=== PATIENT | female | born 1955 | race African-American/Black ===

== ENCOUNTER 2016-11-07 08:35 | Emergency (ER) | payer MEDICARE, MEDICAID ==
[~2016-11-07] VITALS: Ht 167.6 cm; Wt 100.0 kg
[~2016-11-07 08:35] MED LIST: HCTZ; HYDROCHLOROTHIAZIDE; LISINOPRIL; [UNRECOGNIZED DRUG - CODE] TP
[2016-11-07 12:19] LABS: BASOPHILS % 0.5 % (0.0-2.0); EOSINOPHILS % 2.5 % (0.0-5.0); HEMATOCRIT. 37.3 % (36.0-48.0); HEMOGLOBIN. 12.7 g/dL (12.0-16.0); LYMPHOCYTES % 19.1 % (20.0-50.0); MEAN CORPUSCULAR HEMOGLOBIN 28.9 pg (28.0-32.0); MEAN CORPUSCULAR HGB CONC 34.1 g/dL (31.0-37.0); MEAN CORPUSCULAR VOLUME 84.8 fL (81.0-99.0); MEAN PLATELET VOLUME 9.8 fl (7.4-10.4); MONOCYTES % 9.1 % (2.0-8.0); NEUTROPHILS % 68.8 % (40.0-76.0); PLATELET 155 x1000/uL (130-400); RED CELL DISTRIBUTION WIDTH 14.1 % (11.6-14.6); WHITE BLOOD COUNT 5.4 x1000/uL (4.5-11.0)
[2016-11-07 12:25] LABS: CHLORIDE 95 mEq/L (98-107)
[2016-11-07 12:27] LABS: INDEX HEMOLYSI 1 (1-3); INDEX ICTERIC 1 (1-4); INDEX LIPEMIC 1 (1-3)
[2016-11-07 12:30] LABS: ALBUMIN 2.9 g/dL (3.4-5.0); ANION GAP 14; CARBON DIOXIDE 33 mEq/L (21-32); UREA NITROGEN BLOOD 14 mg/dL (7-21)
[2016-11-07 12:32] LABS: ALANINE AMINOTRANSFERASE 33 IU/L (13-61); eGFR > 60 mL/min (>60)
[2016-11-07 12:36] LABS: NT PRO B-TYPE NATRIURETIC PEP 23 pg/mL (5-125); TROPONIN I < 0.02 ng/mL (0.00-0.04)
[2016-11-07 14:25] LABS: CLARITY URINE CLOUDY (CLEAR); COLOR URINE YELLOW (YELLOW); GLUCOSE URINE NEGATIVE (NEGATIVE); KETONES URINE 1+ (NEGATIVE); LEUKOCYTE ESTERASE URINE TRACE (NEGATIVE); NITRITE URINE NEGATIVE (NEGATIVE); OCCULT BLOOD URINE NEGATIVE (NEGATIVE); PH URINE 5.5 (4.5-8.0); PROTEIN URINE NEGATIVE (NEGATIVE); SPECIFIC GRAVITY URINE 1.017 (1.005-1.030)
[2016-11-07] MEDS ORDERED: POTASSIUM CHLORIDE INJ 40 MEQ in SODIUM CHLORIDE 0.9% 500 ML IV SCH (14:30)
[2016-11-07 14:50] LABS: BACTERIA URINE 2+; RBC URINE 0-2 /hpf (0-2); SQUAMOUS EPITHELIAL CELL URINE 1+ /lpf (RARE/1+); WBC URINE 0-2 /hpf (0-2)
[2016-11-07 14:51] LABS: YEAST URINE 1+
[2016-11-07] MEDS ORDERED: IPRATROPIUM/ALBUTEROL 0.5-3(2.5)MG/3ML NEB HHN ONE ×2 (15:00→15:15)
[2016-11-07 18:37] VITALS: BP 89/66
== END 2016-11-07 19:20 | disposition home or self-care (01) ==
LOC: ER 10:52
DX: J45.909 Unspecified asthma, uncomplicated (principal); E87.6 Hypokalemia; I10 Essential (primary) hypertension; R11.2 Nausea with vomiting, unspecified; Z90.710 Acquired absence of both cervix and uterus
CPT/HCPCS: 36415; 71020; 80053; 81001; 83880; 84484; 85025; 87040; 87086; 93005; 94640; 96365; 99285; J3480; J7030; J7040; J7620

== ENCOUNTER 2018-12-21 04:47 | Emergency (ER) | payer MEDICARE, MEDICAID ==
[~2018-12-21] VITALS: Ht 167.6 cm; Wt 108.0 kg
[2018-12-21] MEDS ORDERED: PREDNISONE 20MG TABLET PO ONE (06:45)
[2018-12-21] MEDS ORDERED: FAMOTIDINE 20MG TABLET PO ONE (06:45)
[2018-12-21] MEDS ORDERED: DIPHENHYDRAMINE 25MG CAPSULE PO ONE (06:45)
[2018-12-21 07:11] LABS: BASOPHILS % 0.2 % (0.0-2.0); EOSINOPHILS % 1.8 % (0.0-5.0); HEMATOCRIT. 40.9 % (36.0-48.0); HEMOGLOBIN. 13.8 g/dL (12.0-16.0); LYMPHOCYTES % 23.6 % (20.0-50.0); MEAN CORPUSCULAR HEMOGLOBIN 28.3 pg (28.0-32.0); MEAN CORPUSCULAR VOLUME 84.1 fL (81.0-99.0); MEAN PLATELET VOLUME 9.6 fl (7.4-10.4); MONOCYTES % 6.7 % (2.0-8.0); NEUTROPHILS % 67.7 % (40.0-76.0); PLATELET 190 x1000/uL (130-400); RED BLOOD CELL COUNT 4.86 mill/uL (4.2-5.4); RED CELL DISTRIBUTION WIDTH 13.4 % (11.6-14.6)
[2018-12-21 07:13] LABS: INR 1.1; PROTHROMBIN TIME 11.2 sec (9.6-11.0)
[2018-12-21 07:14] LABS: CHLORIDE 105 mEq/L (98-107)
[2018-12-21] MEDS ORDERED: AZITHROMYCIN 500 MG TABLET PO ONE (07:15)
[2018-12-21] MEDS ORDERED: CEFTRIAXONE SODIUM 250 MG/VIAL IM ONE (07:15)
[2018-12-21 07:43] VITALS: BP 117/90
== END 2018-12-21 07:44 | disposition home or self-care (01) ==
LOC: ER 04:47
DX: L29.9 Pruritus, unspecified (principal); I10 Essential (primary) hypertension; Z88.5 Allergy status to narcotic agent
CPT/HCPCS: 36415; 80053; 85025; 85610; 99284; J7512; Q0163

== ENCOUNTER 2019-05-27 23:25 | Inpatient (IN) | payer MEDICARE, MEDICAID ==
[~2019-05-27] VITALS: Ht 167.6 cm; Wt 103.4 kg
[2019-05-28] MEDS ORDERED: KETOROLAC 30MG/ML VIAL IV ONE (01:30)
[2019-05-28 01:50] LABS: BASOPHILS % 0.6 % (0.0-2.0); EOSINOPHILS % 1.6 % (0.0-5.0); HEMATOCRIT. 43.5 % (36.0-48.0); HEMOGLOBIN. 14.7 g/dL (12.0-16.0); LYMPHOCYTES % 29.8 % (20.0-50.0); MEAN CORPUSCULAR HEMOGLOBIN 28.4 pg (28.0-32.0); MEAN CORPUSCULAR VOLUME 84.4 fL (81.0-99.0); MEAN PLATELET VOLUME 9.3 fl (7.4-10.4); MONOCYTES % 5.4 % (2.0-8.0); NEUTROPHILS % 62.6 % (40.0-76.0); PLATELET 188 x1000/uL (130-400); RED BLOOD CELL COUNT 5.16 mill/uL (4.2-5.4); RED CELL DISTRIBUTION WIDTH 15.2 % (11.6-14.6)
[2019-05-28 01:59] LABS: CHLORIDE 104 mEq/L (98-107)
[2019-05-28 02:10] LABS: INR 1.1
[2019-05-28] MEDS ORDERED: TRAMADOL 50MG TABLET PO ONE (03:45)
[2019-05-28] MEDS ORDERED: MAGNESIUM/ALUMINUM HYDROXIDE/SIMETHICONE 30ML UDC PO PRN (07:30)
[2019-05-28] MEDS ORDERED: NA PHOS,M-B/NA PHOS,DI-BA ENEMA 118ML PR PRN (07:30)
[2019-05-28] MEDS ORDERED: HYDROCODONE/ACETAMINOPHEN 10/325MG TABLET PO PRN (07:30)
[2019-05-28] MEDS ORDERED: DIPHENHYDRAMINE 50MG/ML VIAL IV PRN (07:30)
[2019-05-28] MEDS ORDERED: LORAZEPAM 2MG/ML CPJ IV PRN (07:30)
[2019-05-28] MEDS ORDERED: HYDRALAZINE 20MG/ML VIAL IV PRN (07:30)
[2019-05-28] MEDS ORDERED: GUAIFENESIN 200MG/10ML SUGAR FREE UDC PO PRN (07:30)
[2019-05-28] MEDS ORDERED: ACETAMINOPHEN 325MG TABLET PO PRN (07:30)
[2019-05-28] MEDS ORDERED: IPRATROPIUM/ALBUTEROL 0.5-3(2.5)MG/3ML NEB HHN PRN (07:30)
[2019-05-28] MEDS ORDERED: CLONIDINE 0.1MG TABLET PO PRN (07:30)
[2019-05-28] MEDS ORDERED: DOCUSATE SODIUM 100MG CAPSULE PO PRN (07:30)
[2019-05-28] MEDS ORDERED: ONDANSETRON HCL 4MG/2ML INJ IV PRN (07:30)
[2019-05-28 08:00] VITALS: BP 140/103
[2019-05-28 08:10] VITALS: BP 150/106
[2019-05-28] MEDS ORDERED: HYDRALAZINE 10 MG in SODIUM CHLORIDE 0.9% 50 ML IV PRN (08:30)
[2019-05-28] MEDS: ENOXAPARIN 30MG/0.3ML SYR SUBCUT SCH ×2 (09:24→21:00)
[2019-05-28] MEDS: DEXT 5%/0.45% NACL 1000ML 1,000 ML IV SCH ×3 (09:25→21:00)
[2019-05-28] MEDS ORDERED: KCL 20MEQ/100ML PREMIX 100 ML IV NR (10:00)
[2019-05-28] MEDS ORDERED: TRAM50TA3 MT (11:30)
[2019-05-28] MEDS ORDERED: CARV3.1242 MT (11:30)
[2019-05-28] MEDS ORDERED: OMEP-265 MT (11:30)
[2019-05-28 12:00] VITALS: BP 103/78
[2019-05-28] MEDS: SODIUM CHLORIDE 0.9% INJ 3ML FLUSH IVF SCH ×2 (14:14→21:10)
[2019-05-28 16:00] VITALS: BP 137/83
[2019-05-28] MEDS ORDERED: TRAMADOL 50MG TABLET PO PRN (16:30)
[2019-05-28] MEDS ORDERED: POTASSIUM CHLORIDE 20MEQ TABLET SR PO NR (17:00)
[2019-05-28 20:00] VITALS: BP 109/75
[2019-05-29] MEDS: DEXT 5%/0.45% NACL 1000ML 1,000 ML IV SCH ×2 (03:53→09:36)
[2019-05-29 04:00] VITALS: BP 110/65
[2019-05-29] MEDS: SODIUM CHLORIDE 0.9% INJ 3ML FLUSH IVF SCH (06:13)
[2019-05-29 06:42] LABS: BASOPHILS % 0.6 % (0.0-2.0); EOSINOPHILS % 2.2 % (0.0-5.0); HEMATOCRIT. 37.3 % (36.0-48.0); HEMOGLOBIN. 12.5 g/dL (12.0-16.0); MEAN CORPUSCULAR HEMOGLOBIN 28.4 pg (28.0-32.0); MEAN CORPUSCULAR VOLUME 84.8 fL (81.0-99.0); MEAN PLATELET VOLUME 9.6 fl (7.4-10.4); MONOCYTES % 6.2 % (2.0-8.0); PLATELET 142 x1000/uL (130-400); RED CELL DISTRIBUTION WIDTH 15.3 % (11.6-14.6)
[2019-05-29 07:49] LABS: CHLORIDE 109 mEq/L (98-107)
[2019-05-29 08:00] VITALS: BP 106/68
[2019-05-29] MEDS: ENOXAPARIN 30MG/0.3ML SYR SUBCUT SCH (08:32)
[2019-05-29] MEDS ORDERED: POTASSIUM CHLORIDE 20MEQ TABLET SR PO NR (10:00)
[2019-05-29 12:00] VITALS: BP 104/71
[2019-05-29 13:59] VITALS: BP 104/71
== END 2019-05-29 14:15 | disposition home or self-care (01) | DRG 446 ==
LOC: ER 23:56 → EDBEDREQTM 05-28 07:05 → EDBEDREQ 05-28 07:05 → ENRESERV 05-28 07:29 → 6EST 05-28 08:06
PROVIDERS: ADMIT Internal Medicine; ATTEND Internal Medicine
DX: K80.70 Calculus of gallbladder and bile duct without cholecystitis without obstruction (principal); E87.6 Hypokalemia; I10 Essential (primary) hypertension; W18.30XA Fall on same level, unspecified, initial encounter; Z88.5 Allergy status to narcotic agent; Z79.899 Other long term (current) drug therapy; Z68.36 Body mass index [BMI] 36.0-36.9, adult
CPT/HCPCS: 36415; 76700; 78227; 96374; 99285; A9537; J1200; J1650; J1885; J3480

== ENCOUNTER 2019-06-07 06:54 | Day surgery (SDC) | payer MEDICARE, MEDICAID ==
[~2019-06-07] VITALS: Ht 167.6 cm; Wt 103.4 kg
[~2019-06-07 06:54] MED LIST changes: +CARV3.1242 MT; -HCTZ; -HYDROCHLOROTHIAZIDE; +LACTATED RINGERS 1,000 ML IV SCH; -LISINOPRIL; +LISINOPRIL PO; +OMEP-265 MT; +TRAM50TA3 MT; -[UNRECOGNIZED DRUG - CODE] TP
[2019-06-07] MEDS ORDERED: INDOCYANINE GREEN 25 MG VIAL IV ONE (11:33)
[2019-06-07] MEDS ORDERED: BUPIVACAINE HCL 0.5% (5MG/ML) 50ML ONE (11:34)
[2019-06-07] MEDS ORDERED: SKIN ADHESIVE 0.7 GM EA TOP ONE (11:34)
[2019-06-07] MEDS ORDERED: PROPOFOL 200MG/20ML VIAL IV ONE (11:52)
[2019-06-07] MEDS ORDERED: ROCURONIUM BROMIDE 10MG/ML VIAL 5ML IV ONE (11:52)
[2019-06-07] MEDS ORDERED: FENTANYL CITRATE/PF 50MCG/ML 2ML VIAL ONE (11:52)
[2019-06-07] MEDS ORDERED: LIDOCAINE HCL/PF 1% 10 MG/ML 5ML VIAL ONE (11:53)
[2019-06-07] MEDS ORDERED: MIDAZOLAM HCL 2 MG/2 ML VIAL ONE (11:53)
[2019-06-07] MEDS ORDERED: SUCCINYLCHOLINE CHLORIDE 200MG/10ML IV ONE (11:53)
[2019-06-07] MEDS ORDERED: EPHEDRINE SULFATE 50MG/ML VIAL ONE (11:58)
[2019-06-07] MEDS ORDERED: SODIUM CHLORIDE 0.9% 10ML VIAL ONE (11:58)
[2019-06-07 13:18] LABS: CLARITY URINE CLOUDY (CLEAR); COLOR URINE YELLOW (YELLOW); KETONES URINE NEGATIVE (NEGATIVE); LEUKOCYTE ESTERASE URINE TRACE (NEGATIVE); NITRITE URINE NEGATIVE (NEGATIVE); OCCULT BLOOD URINE NEGATIVE (NEGATIVE); PH URINE 5.5 (4.5-8.0); PROTEIN URINE NEGATIVE (NEGATIVE); SPECIFIC GRAVITY URINE 1.016 (1.005-1.030)
[2019-06-07] MEDS ORDERED: ONDANSETRON HCL 4MG/2ML INJ ONE (13:28)
[2019-06-07] MEDS ORDERED: LISI-186 PO (14:15)
[2019-06-07] MEDS: HYDROMORPHONE HCL/PF 2MG/ML CPJ IV PRN ×4 (14:16→14:51)
[2019-06-07] MEDS ORDERED: TRAMADOL 50MG TABLET PO NR (15:30)
[2019-06-07] MEDS ORDERED: NITROGLYCERIN 0.4MG TABLET SL SL PRN (15:30)
[2019-06-07 16:06] VITALS: BP 99/64
[2019-06-07] MEDS ORDERED: DIPHENHYDRAMINE 50MG/ML VIAL IV NR (16:30)
== END 2019-06-07 18:30 | disposition home or self-care (01) ==
LOC: OR 06:54
PROVIDERS: ATTEND Surgery
DX: K80.10 Calculus of gallbladder with chronic cholecystitis without obstruction (principal); I10 Essential (primary) hypertension; E66.01 Morbid (severe) obesity due to excess calories; E78.00 Pure hypercholesterolemia, unspecified; Z79.899 Other long term (current) drug therapy; Z88.5 Allergy status to narcotic agent; Z88.6 Allergy status to analgesic agent; Z88.8 Allergy status to other drugs, medicaments and biological substances; Z83.3 Family history of diabetes mellitus; Z82.49 Family history of ischemic heart disease and other diseases of the circulatory system; Z98.890 Other specified postprocedural states; Z68.36 Body mass index [BMI] 36.0-36.9, adult
CPT/HCPCS: 47562; 81003; 88304; J0330; J1170; J1200; J2250; J2405; J2704; J3010; J3490; Q9957

== ENCOUNTER 2019-06-07 22:32 | Emergency (ER) | payer MEDICARE, MEDICAID ==
[~2019-06-07] VITALS: Ht 167.6 cm; Wt 103.0 kg
[~2019-06-07 22:32] MED LIST changes: -LACTATED RINGERS 1,000 ML IV SCH; +LISI-186 PO
[2019-06-08] MEDS ORDERED: KETOROLAC 30MG/ML VIAL IM ONE (01:00)
[2019-06-08] MEDS ORDERED: TRAMADOL 50MG TABLET PO ONE (01:45)
[2019-06-08 01:56] LABS: CLARITY URINE CLEAR (CLEAR); COLOR URINE YELLOW (YELLOW); KETONES URINE NEGATIVE (NEGATIVE); LEUKOCYTE ESTERASE URINE NEGATIVE (NEGATIVE); NITRITE URINE NEGATIVE (NEGATIVE); OCCULT BLOOD URINE NEGATIVE (NEGATIVE); PROTEIN URINE NEGATIVE (NEGATIVE); SPECIFIC GRAVITY URINE 1.011 (1.005-1.030)
[2019-06-08 03:23] VITALS: BP 138/99
== END 2019-06-08 03:42 | disposition home or self-care (01) ==
LOC: ER 22:32
DX: R33.9 Retention of urine, unspecified (principal); I10 Essential (primary) hypertension
CPT/HCPCS: 51702; 81003; 99284; A4315

== ENCOUNTER → 2020-03-19 | Outpatient (CLI) | payer MEDICARE, MEDICAID ==
[~2020-03-19] MED LIST changes: +AMLO5TAB88 PO; +ASPI-1497 PO; +DEXAMETHASONE 4MG/ML 1ML VIAL ONE; +FENTANYL CITRATE/PF 50MCG/ML 2ML VIAL ONE; +GLYCOPYRROLATE 0.2 MG/ML 2ML VIAL ONE; -LISINOPRIL PO; +METO25TA6 PO; +MIDAZOLAM HCL 2 MG/2 ML VIAL ONE; +NAPR220T66 PO; +NEOSTIGMINE METHYLSULFATE 1MG/ML 10 ML VIAL ONE; +ONDANSETRON HCL 4MG/2ML INJ ONE; +PRIM50TA31 PO; +PROPOFOL 200MG/20ML VIAL IV ONE; +RANI150C12 PO; +ROCURONIUM BROMIDE 10MG/ML VIAL 5ML IV ONE; +THROMBIN (BOVINE) 5000 UNITS/VIAL TOP ONE
== END | disposition home or self-care (01) ==
LOC: LAB 08:55
PROVIDERS: ATTEND Neurological Surgery
DX: Z01.812 Encounter for preprocedural laboratory examination (principal); Z20.828 Contact with and (suspected) exposure to other viral communicable diseases
CPT/HCPCS: C9803; U0003

== ENCOUNTER 2020-03-21 06:10 | Inpatient (IN) | payer MEDICARE, MEDICAID ==
[2020-03-21] VITALS (53 sets, daily range): BP systolic 92–171; BP diastolic 34–98
[~2020-03-21] VITALS: Ht 167.6 cm; Wt 115.7 kg
[~2020-03-21 06:10] MED LIST changes: -AMLO5TAB88 PO; -ASPI-1497 PO; -DEXAMETHASONE 4MG/ML 1ML VIAL ONE; -FENTANYL CITRATE/PF 50MCG/ML 2ML VIAL ONE; -GLYCOPYRROLATE 0.2 MG/ML 2ML VIAL ONE; -METO25TA6 PO; -MIDAZOLAM HCL 2 MG/2 ML VIAL ONE; -NAPR220T66 PO; -NEOSTIGMINE METHYLSULFATE 1MG/ML 10 ML VIAL ONE; -ONDANSETRON HCL 4MG/2ML INJ ONE; -PRIM50TA31 PO; -PROPOFOL 200MG/20ML VIAL IV ONE; -RANI150C12 PO; -ROCURONIUM BROMIDE 10MG/ML VIAL 5ML IV ONE; -THROMBIN (BOVINE) 5000 UNITS/VIAL TOP ONE
[2020-03-21 06:58] LABS: CLARITY URINE CLEAR (CLEAR); COLOR URINE YELLOW (YELLOW); KETONES URINE NEGATIVE (NEGATIVE); LEUKOCYTE ESTERASE URINE NEGATIVE (NEGATIVE); NITRITE URINE NEGATIVE (NEGATIVE); OCCULT BLOOD URINE NEGATIVE (NEGATIVE); PROTEIN URINE NEGATIVE (NEGATIVE); SPECIFIC GRAVITY URINE 1.016 (1.005-1.030)
[2020-03-21] MEDS ORDERED: NAPR220T66 PO (07:20)
[2020-03-21] MEDS ORDERED: PRIM50TA31 PO (07:20)
[2020-03-21] MEDS ORDERED: ASPI-1497 PO (07:20)
[2020-03-21] MEDS ORDERED: RANI150C12 PO (07:20)
[2020-03-21] MEDS ORDERED: AMLO5TAB88 PO (07:20)
[2020-03-21] MEDS ORDERED: METO25TA6 PO (07:20)
[2020-03-21] MEDS ORDERED: LACTATED RINGERS 1,000 ML IV SCH (07:30)
[2020-03-21] MEDS ORDERED: BACITRACIN 50,000 UNITS/VIAL ONE (08:36)
[2020-03-21] MEDS ORDERED: NORMAL SALINE 0.9% 10 ML SYR ONE (08:36)
[2020-03-21] MEDS ORDERED: THROMBIN (BOVINE) 5000 UNITS/VIAL TOP ONE (08:36)
[2020-03-21] MEDS ORDERED: LIDOCAINE HCL/EPINEPHRINE 1%-EPI 1:100,000 20 ML VIAL ONE (08:36)
[2020-03-21] MEDS ORDERED: HYDROMORPHONE HCL/PF 2MG/ML CPJ IV PRN (10:30)
[2020-03-21] MEDS: DEXAMETHASONE 4MG/ML 1ML VIAL IV SCH ×2 (11:10→18:00)
[2020-03-21] MEDS: DEXT 5%/LACTATED RINGERS 1,000 ML IV SCH ×2 (11:10→21:13)
[2020-03-21] MEDS ORDERED: HYDROMORPHONE PCA 10MG/50ML IV PRN (11:15)
[2020-03-21] MEDS ORDERED: NALOXONE INJ IV PRN (11:15)
[2020-03-21] MEDS ORDERED: ONDANSETRON INJ IV PRN (11:15)
[2020-03-21] MEDS: DIPHENHYDRAMINE 50MG/ML VIAL IV PRN ×2 (12:22→19:59)
[2020-03-21] MEDS: NICARDIPINE 100 MG in SODIUM CHLORIDE 0.9% 60 ML IV PRN (12:23)
[2020-03-21] MEDS ORDERED: TRAMADOL 50MG TABLET PO PRN (13:30)
[2020-03-21] MEDS: CEFAZOLIN 1000MG PREMIX 50 ML IV SCH ×2 (13:37→22:07)
[2020-03-21] MEDS ORDERED: CEFAZOLIN SODIUM 1000MG/VIAL IV SCH (14:00)
[2020-03-21] MEDS ORDERED: IPRATROPIUM/ALBUTEROL 0.5-3(2.5)MG/3ML NEB HHN PRN (15:15)
[2020-03-21] MEDS: HYDROMORPHONE HCL/PF 2MG/ML CPJ IV PRN ×2 (18:00→22:08)
[2020-03-21] MEDS ORDERED: SENNOSIDES/DOCUSATE SOD 8.6/50MG TABLET PO PRN (21:00)
[2020-03-22] VITALS (70 sets, daily range): BP systolic 102–183; BP diastolic 30–145
[2020-03-22] MEDS: DEXAMETHASONE 4MG/ML 1ML VIAL IV SCH ×3 (00:40→12:11)
[2020-03-22] MEDS: DIPHENHYDRAMINE 50MG/ML VIAL IV PRN ×2 (01:53→08:21)
[2020-03-22 05:08] LABS: HEMATOCRIT. 40.1 % (36.0-48.0); HEMOGLOBIN. 13.3 g/dL (12.0-16.0); MEAN CORPUSCULAR HEMOGLOBIN 28.7 pg (28.0-32.0); MEAN CORPUSCULAR VOLUME 86.7 fL (81.0-99.0); MEAN PLATELET VOLUME 9.3 fl (7.4-10.4); PLATELET 169 x1000/uL (130-400); RED BLOOD CELL COUNT 4.62 mill/uL (4.2-5.4); RED CELL DISTRIBUTION WIDTH 14.8 % (11.6-14.6)
[2020-03-22 05:15] LABS: CHLORIDE 107 mEq/L (98-107)
[2020-03-22] MEDS: CEFAZOLIN 1000MG PREMIX 50 ML IV SCH (05:53)
[2020-03-22] MEDS: HYDROMORPHONE HCL/PF 2MG/ML CPJ IV PRN ×3 (06:24→22:28)
[2020-03-22 06:56] LABS: PLATELET ESTIMATE NORMAL
[2020-03-22] MEDS: DOCUSATE SODIUM 250MG CAPSULE PO SCH (08:15)
[2020-03-22] MEDS ORDERED: POTASSIUM CHLORIDE 20MEQ TABLET SR PO SCH (08:30)
[2020-03-22] MEDS ORDERED: DIAZEPAM 5 MG TABLET PO NR (10:15)
[2020-03-22] MEDS ORDERED: KCL 20MEQ/100ML PREMIX 100 ML IV SCH (11:00)
[2020-03-22] MEDS ORDERED: AMLODIPINE 5MG TABLET PO SCH (14:30)
[2020-03-22] MEDS: DEXT 5%/LACTATED RINGERS 1,000 ML IV SCH (16:44)
[2020-03-22] MEDS ORDERED: AMLODIPINE 5MG TABLET PO NR (17:00)
[2020-03-22] MEDS ORDERED: LABETALOL 5MG/ML SYR 20 MG/4 ML SYRINGE IV PRN (18:30)
[2020-03-22] MEDS: NICARDIPINE 100 MG in SODIUM CHLORIDE 0.9% 60 ML IV PRN (21:04)
[2020-03-23] VITALS (53 sets, daily range): BP systolic 96–167; BP diastolic 53–106
[2020-03-23] MEDS: DEXT 5%/LACTATED RINGERS 1,000 ML IV SCH (03:01)
[2020-03-23 04:51] LABS: HEMATOCRIT. 38.7 % (36.0-48.0); HEMOGLOBIN. 12.8 g/dL (12.0-16.0); MEAN CORPUSCULAR HEMOGLOBIN 28.4 pg (28.0-32.0); MEAN CORPUSCULAR VOLUME 85.9 fL (81.0-99.0); MEAN PLATELET VOLUME 9.1 fl (7.4-10.4); PLATELET 176 x1000/uL (130-400); RED CELL DISTRIBUTION WIDTH 14.9 % (11.6-14.6)
[2020-03-23 04:55] LABS: CHLORIDE 107 mEq/L (98-107)
[2020-03-23 07:38] LABS: PLATELET ESTIMATE NORMAL
[2020-03-23] MEDS: DOCUSATE SODIUM 250MG CAPSULE PO SCH (08:47)
[2020-03-23] MEDS: AMLODIPINE 10MG TABLET PO SCH (08:48)
[2020-03-23] MEDS ORDERED: CLONIDINE 0.1MG TABLET PO PRN (09:45)
[2020-03-23] MEDS: HYDROMORPHONE HCL/PF 2MG/ML CPJ IV PRN (20:43)
[2020-03-23] MEDS: DIPHENHYDRAMINE 50MG/ML VIAL IV PRN (23:08)
[2020-03-24] VITALS: BP 135/85
[2020-03-24] MEDS: HYDROMORPHONE HCL/PF 2MG/ML CPJ IV PRN (02:48)
[2020-03-24 04:00] VITALS: BP 135/85
[2020-03-24 08:00] VITALS: BP 143/93
[2020-03-24] MEDS: AMLODIPINE 10MG TABLET PO SCH (09:14)
[2020-03-24] MEDS: DOCUSATE SODIUM 250MG CAPSULE PO SCH (09:14)
== END 2020-03-24 11:12 | disposition home or self-care (01) | DRG 471 ==
LOC: OR 06:10 → MICUNO 06:11 → 6EST 03-23 12:25
PROVIDERS: ADMIT Neurological Surgery; ATTEND Neurological Surgery
PROC: 0RG20J0 Fusion of 2 or more Cervical Vertebral Joints with Synthetic Substitute, Anterior Approach, Anterior Column, Open Approach (ICD-10-PCS; principal; 2020-03-21)
PROC: 0RB30ZZ Excision of Cervical Vertebral Disc, Open Approach (ICD-10-PCS; 2020-03-21)
DX: M48.02 Spinal stenosis, cervical region (principal); G82.50 Quadriplegia, unspecified; M47.12 Other spondylosis with myelopathy, cervical region; Z68.41 Body mass index [BMI] 40.0-44.9, adult; M47.22 Other spondylosis with radiculopathy, cervical region; E66.9 Obesity, unspecified; I10 Essential (primary) hypertension; R29.6 Repeated falls; Z79.82 Long term (current) use of aspirin; Z82.49 Family history of ischemic heart disease and other diseases of the circulatory system; Z79.899 Other long term (current) drug therapy; R26.89 Other abnormalities of gait and mobility
CPT/HCPCS: 36415; 72040; 72141; 76000; 80048; 80053; 81003; 84484; 85025; 86850; 86900; 88311; 93005; 95925; 95926; 95928; 95929; 97116; 97162; 97530; C1713; J0690; J1100; J1170; J1200; J2250; J2405; J2704; J2710; J3010; J3480; J3490; J7050; J7121; C9803-CS; U0003-CS

== ENCOUNTER 2020-04-26 16:31 | Emergency (ER) | payer MEDICARE, MEDICAID ==
[~2020-04-26] VITALS: Ht 165.1 cm; Wt 120.0 kg
[~2020-04-26 16:31] MED LIST changes: +AMLO5TAB88 PO; -CARV3.1242 MT; -LISI-186 PO; +METO25TA6 PO; -OMEP-265 MT; +PRIM50TA31 PO; +RANI150C12 PO
[2020-04-26] MEDS ORDERED: NAPROXEN 250MG TABLET PO NR (20:15)
[2020-04-26 20:44] VITALS: BP 172/105
[2020-04-26] MEDS ORDERED: ACETAMINOPHEN 500MG TABLET PO ONE (20:45)
[2020-04-26] MEDS ORDERED: IBUPROFEN 400MG TABLET PO ONE (20:45)
== END 2020-04-26 20:46 | disposition home or self-care (01) ==
LOC: ER 16:31
DX: M62.830 Muscle spasm of back (principal); I10 Essential (primary) hypertension
CPT/HCPCS: 72100; 99283